=== PATIENT | female | born 1985 | race Caucasian/White ===

== ENCOUNTER 2020-10-02 12:09 | Emergency (ER) | payer OTHER ==
[2020-10-02] MEDS ORDERED: DIAZEPAM 5 MG TABLET ONE (14:25)
[2020-10-02] MEDS ORDERED: KETOROLAC 30 MG/ML INJ ONE (14:26)
[2020-10-02] MEDS ORDERED: MORPHINE 4 MG/ML SYR ONE (14:26)
[2020-10-02] MEDS ORDERED: ONDANSETRON 4 MG (ODT) TAB ONE (14:26)
--- NOTE | 2020-10-02 14:33 | RAD REPORT ---
EXAM DESCRIPTION: RAD - Ribs Right - 10/02/2020 2:16 pm CLINICAL HISTORY: PAIN COMPARISON: No comparisons FINDINGS: No evidence of displaced rib fracture. No aggressive rib lesion. The right lung is clear. Cholecystectomy clips.
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
[2020-10-07 18:32] VITALS: TEMP 98.3; O2SAT 100
[2020-10-07 18:34] VITALS: BP 136/93
== END 2020-10-02 15:47 | disposition home or self-care (01) ==
LOC: ER 12:09
DX: S20.211A Contusion of right front wall of thorax, initial encounter (principal); W22.8XXA Striking against or struck by other objects, initial encounter; Y93.9 Activity, unspecified; Y92.9 Unspecified place or not applicable; Z88.0 Allergy status to penicillin
CPT/HCPCS: 96372; 99284